=== PATIENT | male | born 1965 | race Caucasian/White ===

== ENCOUNTER 2016-09-18 06:12 | Observation (INO) | payer OTHER ==
[~2016-09-18] VITALS: Ht 175.3 cm; Wt 80.1 kg
[~2016-09-18 06:12] MED LIST: LACTATED RINGERS 1,000 ML IV SCH; SODIUM CHLORIDE FLUSH 3 ML SYR IV PRN
[2016-09-18 06:16] VITALS: BP 91/65
--- OUTSIDE RECORDS SUMMARY | 2016-09-18 06:16 | XMS REPORT | Summary of Care ---
Author Author Van Wall Organization Unknown Address [address], [place] [id number] Phone Unavailable Care Team Providers Care Materials Specialist Name Role Phone Van Wall Unavailable Unavailable Gorge Booth PP Unavailable Unavailable Unavailable Functional Status Functional Status Health Issues Name Dates Details Functional status health issues are not documented Status: Cognitive Status Health Issues Name Dates Details Cognitive status health issues are not documented Status: Problems Name Dates Details Diabetes (250.00, E11.9) Status: Active Depression (311, F32.9) Status: Active Migraine headache (346.90, G43.909) Status: Active Insulin long-term use (V58.67, Z79.4) Status: Active Type 2 diabetes mellitus, uncontrolled (250.02, E11.65) Status: Active Acquired hypertriglyceridemia (272.1, E78.1) Status: Active CKD (chronic kidney disease), stage III (585.3, N18.3) Status: Active Medications Name Dates Details Pioglitazone HCl - 30 MG Oral Tablet TAKE 1 TABLET ONCE DAILY. Refills: 0 Started 16-Oct-2015 ActiveFenofibrate 160 MG Oral Tablet Take 1 tablet daily Quantity: 30 Refills: 3 Van Wall Started 16-Oct-2015 ActiveHumaLOG KwikPen 100 UNIT/ML Subcutaneous Solution Pen-injector INJECT SUBCUTANEOUSLY DIRECTED. Up to 30 units per sliding scale 3 x daily with meals Quantity: 1 Refills: 0 Van Wall Started 21-Nov-2015 Active3 ML Pen (5 Pens) Tresiba FlexTouch 200 UNIT/ML Subcutaneous Solution Pen-injector inject sub-q 90 units daily . DX E 11.65 Quantity: 2 Refills: 3 Van Wall Started 27-Nov-2015 Active3 ML Pen (3 Pens) Trulicity 0.75 MG/0.5ML Subcutaneous Solution Pen-injector INJECT SUB-Q 0.75MG ONCE WEEKLY DX E 11.65 Quantity: 3 Refills: 2 Van Wall Started 27-Nov-2015 Active0.5 ML Pen (4 Pens) Allergies and Adverse Reactions Name Dates Details No Known Drug Allergies Status: Active Procedures Procedure Dates Details History of Middle Ear Surgery History of Knee Surgery History of Distal Reinsertion Of Ruptured Biceps Tendon HEMOGLOBIN A1C 3507 Ordered:30-Jan-2016 LIPID PROFILE 1184 Ordered:30-Jan-2016 Comprehensive Metabolic Panel 1212 Ordered:30-Jan-2016 Immunization Name Dates Details Immunizations not documented Family History Grandmother Name Dates Details Family history of myocardial infarction (V17.3, Z82.49) Status: Active Grandfather Name Dates Details Family history of malignant neoplasm (V16.9, Z80.9) Status: Active Social History Name Dates Details Smoking StatusNever smoker Vital Signs Date Test Result Details 30-Jan-2016 09:13 BP Systolic 122 mm[Hg] Status: BP Diastolic 80 mm[Hg] Status: Heart Rate 64 /min Status: Weight 208 lb Status: O2 SAT 98 % Status: Body Mass Index Calculated 30.72 kg/m2 Status: Body Surface Area Calculated 2.1 m2 Status: Results Date Description Value Details Results not documented Plan of Care Planned Observations Name Dates Details Planned Goals not documented Goal Planned Encounters Appointment; Provider: Jenna Mccurdy On 15-Aug-2010 15:30 Instructions Instructions not documented Encounters Appointment; Van Wall Encounter Diagnosis: Problem not documented On 30-Jan-2016 09:30 Appointment; Van Wall Encounter Diagnosis: Problem not documented On 27-Nov-2015 13:45 Appointment; Van Wall Encounter Diagnosis: Problem not documented On 16-Oct-2015 10:00
[2016-09-18] MEDS ORDERED: INSU100I23 SC (06:51)
[2016-09-18] MEDS ORDERED: GLIM2TAB PO (06:51)
[2016-09-18] MEDS ORDERED: PROMETHAZINE HCL INJ 12.5 MG in SODIUM CHLORIDE 25 ML IV PRN (08:45)
[2016-09-18] MEDS ORDERED: GLUCAGON EMERGENCY 1 MG/KIT IM PRN (08:45)
[2016-09-18] MEDS ORDERED: ACETAMINOPHEN 325 MG TAB (TYLENOL) PO PRN (08:45)
[2016-09-18] MEDS ORDERED: ONDANSETRON 2 MG/ML (Z0FRAN) 2 ML VIAL IV PRN (08:45)
[2016-09-18] MEDS ORDERED: DEXTROSE ORAL GEL (GLUTOSE 40%) 15 GM TUBE PO PRN (08:45)
[2016-09-18] MEDS ORDERED: DEXTROSE 50% 25 GM/50 ML SYRINGE IV PRN (08:45)
[2016-09-18 08:46] VITALS: BP 114/80
[2016-09-18] MEDS ORDERED: NS FLUSH 10 ML PRN IV (09:00)
[2016-09-18] MEDS ORDERED: NS FLUSH 3 ML PRN IV (09:00)
--- NOTE | 2016-09-18 09:02 | Progress Note (E) ---
Progress Note Planned diagnostic colonoscopy (change in bowel habit) for today was postponed due to uncontrolled blood glucose. Patient admitted by hospitalist service to facilitate control blood sugar. If this is controlled, we'll plan to proceed with colonoscopy tomorrow as patient is already prepped. Continue clear liquid diet today, NPO after midnight except meds with a sip of water. JONI GOLDEBRG MD Sep 18, 2016 09:02
[2016-09-18 09:05] LABS: BASOPHILS % (AUTO) 0 % (0-2); EOSINOPHILS # (AUTO) 0.1 10^3uL; EOSINOPHILS % (AUTO) 2 % (0-4); MEAN CORPUSCULAR HEMOGLOBIN 28.6 PG (26.0-34.0); MEAN PLATELET VOLUME 9.8 FL (6.0-9.5); MONOCYTES # (AUTO) 0.3 X10^3; MONOCYTES % (AUTO) 6 % (3-11); NEUTROPHILS # (AUTO) 3.8 X10^3; NEUTROPHILS % (AUTO) 73 % (51-67); PLATELET COUNT 117 10^3uL (150-450); WHITE BLOOD COUNT 5.24 10^3uL (4.0-11.0)
[2016-09-18 09:17] LABS: MEAN CORPUSCULAR VOLUME 77 FL (80-100)
[2016-09-18 09:21] LABS: ALBUMIN 3.9 g/dL (3.4-5.0); ANION GAP 17.7 MEQ/L (3-15); CALCULATED IONIZED CALCIUM 4.2 mg/dL (3.8-4.6); MAGNESIUM* 1.8 mg/dL (1.6-2.3); TOTAL PROTEIN 6.8 g/dL (6.4-8.5)
[2016-09-18] MEDS: INSULIN LISPRO 1 UNIT/0.01 ML (HUMALOG) DOSE SC SCH ×6 (09:21→21:37)
[2016-09-18] MEDS: NS FLUSH 3 ML DAILY IV SCH (09:21)
--- NOTE | 2016-09-18 09:54 | History and Physical (E) ---
History & Physical PCP: Gerardo Gifford MD TERMITE TREATER: Van Brooks MD, [facility] CC: Hyperglycemia HPI Jame Lagos is a 50 year old male admitted from [facility] 09/18 where he presented for scheduled outpatient colonoscopy (because of a new problem of change in bowel habit) but was found to have marked hyperglycemia with blood glucose 474. He has poorly treated diabetes and hasn't been taking his insulin at home. His colonoscopy was deferred and hospitalist service was contacted for further management. He was seen in [facility] and was alert interactive, oriented, and in no acute distress. He was agreeable to admission for further workup and management with plan to complete colonoscopy 09/19 once his blood glucose was stabilized. Regarding diabetes, says he had been on insulin for type II diabetes but had stopped taking it last month. Says he admits to getting frustrated because he feels like when he takes insulin his blood sugar still isn't regulated right. Says he has seen Dr. Wall, circuit walker with [facility], and he was supposed to see him soon for some new testing. Has had type II diabetes for 7 years. Says he was initially on oral therapy but started insulin 4 years ago. PMH * Diabetes Mellitus Type II, poorly controlled. * Constipation, change in bowel habits * CKD - Stage unknown. PSH * Biceps tendon rupture ALLERGIES: Please see list at end of report. HOME MEDICATIONS: Please see list at end of report. FH Mom is healthy. Father is healthy. Son is healthy. SH Lives in his own home in [place]. Son stays with him often. Works at [employer]. Denies smoking. No alcohol or drug use. ROS CONSTITUTION: Weight has been down about 7 pounds over the last 3 days. Denies fever or chills. HEENT: No change in vision or hearing. No sores in mouth, sore throat. CV: No chest pain, palpitations. PULM: No cough, shortness of breath, difficulty breathing. GI: No upset stomach, nausea, vomiting, or diarrhea. Has had some constipation. No blood in stool. : No dysuria. No blood in urine. MS: No new muscle or joint aches and pains. NEURO: Some numbness in feet and ankles that comes and goes. INTEG: No rashes, lesions, or sores. ENDO: No heat or cold intolerance. Often has increased thirst. HEME/LYMPH: No easy bruising or bleeding. No swollen glands. PSYCH: No change in mood or behavior. OBJECTIVE Vital Signs Date Time Temp Pulse Resp B/P Pulse Ox O2 Delivery O2 Flow Rate FiO2 09/18/16 06:16 97.7 104 18 91/65 98 Room air GEN: Awake, alert, oriented, NAD at present. HEENT: EOMI, PERRL, clear sclerae, mildly dry oral mucosa. CV: RRR S1 S2 normal with no murmur LUNGS: CTA B ABD: Soft, NT/ND with normal bowel sounds. EXTR: No C/C/E. Normal peripheral pulses. INTEG: No rash. NEURO: No focal motor neuro deficit. IMAGING: None new ASSESSMENT Jame Lagos is a 50 year old male admitted from [facility] 09/18 with marked hyperglycemia in the setting of diabetes mellitus type II, uncontrolled. He has not been taking his insulin. He was due for colonoscopy 09/18 for change in bowel habits but this was deferred to 09/19 because of hyperglycemia. PLAN * Hyperglycemia, Diabetes Mellitus Type II, Uncontrolled: Due to insulin non- adherence. Acknowledges he needs to take better care of this and is agreeable to getting back on track with insulin. Is agreeable to follow-up with his circuit walker in [place]. For now, basal/bolus regimen with correction factor. Check A1C. * DRAGAN on CKD: Unknown baseline Cr but he seems to remember having "kidney issue " and an abdominal sono in 2009 (on file in [facility]) showed normal sized kidneys bilaterally but with increased cortical echogenicity. For now, IVF. Check UA. Monitor Cr trend. * Dehydration: On the basis if labs, exam. NS bolus. I&O. * Change in Bowel Habits: Was supposed to have colonoscopy 09/18 but this was deferred to 09/19 because of hyperglycemia. * Constipation: Already cleaned out with bowel prep for colonoscopy. Observe. * F/E/N: IVF as above. CLD with NPO after midnight for colonoscopy. * Prophylaxis: Ambulate * Code Status: Full * Dispo: observation pending utilization. Expected to discharge 09/19 after colonoscopy recovery. Allergies/Home Medications Allergies: Coded Allergies: No Known Drug Allergies (Unverified , 09/17/16) Reported Home Medications Scheduled Glimepiride (Glimepiride) 2 MG PO DAILY (Reported) Insulin Lispro (Humalog) 24 UNIT SC TID (Reported) Copies to: End of Report . PHILIPP TELLO MD Sep 18, 2016 09:35
[2016-09-18 10:56] LABS: BILIRUBIN,URINE Negative (Negative); CLARITY,URINE Clear; COLOR,URINE Yellow; GLUCOSE, URINE (UA) 2+ (Negative); LEUKOCYTE ESTERASE ,URINE Negative (Negative); PH,URINE 5.5 (5.0 - 8.0); UROBILINOGEN,URINE 0.2 mg/dL (0.2-1.0)
[2016-09-18 11:47] LABS: RBC,URINE 0-2 /HPF; URINE CENTRIFUGED VOLUME 12 mL
[2016-09-18 15:46] VITALS: BP 123/78
[2016-09-18] MEDS ORDERED: INSULIN GLARGINE 1 UNIT/0.01ML (LANTUS) DOSE SC SCH (21:00)
[2016-09-18 23:46] VITALS: BP 121/84
[2016-09-19 06:44] LABS: BASOPHILS % (AUTO) 0 % (0-2); EOSINOPHILS # (AUTO) 0.2 10^3uL; EOSINOPHILS % (AUTO) 4 % (0-4); LYMPHOCYTES # (AUTO) 1.2 X10^3; MEAN CORPUSCULAR HEMOGLOBIN 28.2 PG (26.0-34.0); MEAN PLATELET VOLUME 9.9 FL (6.0-9.5); MONOCYTES # (AUTO) 0.4 X10^3; MONOCYTES % (AUTO) 9 % (3-11); NEUTROPHILS # (AUTO) 3.1 X10^3; NEUTROPHILS % (AUTO) 63 % (51-67); PLATELET COUNT 112 10^3uL (150-450); WHITE BLOOD COUNT 4.85 10^3uL (4.0-11.0)
[2016-09-19 06:48] LABS: ALBUMIN 3.4 g/dL (3.4-5.0); ANION GAP 13.8 MEQ/L (3-15); MAGNESIUM* 1.8 mg/dL (1.6-2.3); PHOSPHORUS 4.4 mg/dL (2.4-4.9)
[2016-09-19 07:12] LABS: MEAN CORPUSCULAR HGB CONC 35.8 g/dL (31.0-37.0); MEAN CORPUSCULAR VOLUME 79 FL (80-100)
[2016-09-19] MEDS: INSULIN LISPRO 1 UNIT/0.01 ML (HUMALOG) DOSE SC SCH ×5 (07:14→12:26)
[2016-09-19] MEDS: NS FLUSH 3 ML DAILY IV SCH (08:34)
[2016-09-19 08:57] VITALS: BP 119/75
[2016-09-19] MEDS ORDERED: INSU100V8 SC (11:37)
--- NOTE | 2016-09-19 11:57 | Discharge Summary (E) ---
Discharge Summary (A) Admit Date/Time Sep 18, 2016 at 07:24 Discharge Date/Time Sep 19, 2016 Admitting Provider Hector Mcmullen MD Primary Care Provider Gerardo Gifford MD Attending Provider Hector Mcmullen MD Discharging physician: Rosa Hernandez MD Consulting Provider Admission Diagnosis Hyperglycemia, Diabetes Mellitus Type II, Uncontrolled DRAGAN on CKD Dehydration Change in Bowel Habits Constipation History and Present Illness Jame Lagos is a 50 year old male admitted from [facility] 09/18 where he presented for scheduled outpatient colonoscopy (because of a new problem of change in bowel habit) but was found to have marked hyperglycemia with blood glucose 474. He has poorly treated diabetes and hasn't been taking his insulin at home. His colonoscopy was deferred and hospitalist service was contacted for further management. He was seen in [facility] and was alert interactive, oriented, and in no acute distress. He was agreeable to admission for further workup and management with plan to complete colonoscopy 09/19 once his blood glucose was stabilized. Regarding diabetes, says he had been on insulin for type II diabetes but had stopped taking it last month. Says he admits to getting frustrated because he feels like when he takes insulin his blood sugar still isn't regulated right. Says he has seen Dr. Cardenas, metal bonding worker with [facility], and he was supposed to see him soon for some new testing. Has had type II diabetes for 7 years. Says he was initially on oral therapy but started insulin 4 years ago. Hospital Course and Treatment Hyperglycemia, Diabetes Mellitus Type II, Uncontrolled Due to patient not taking his insulin. Acknowledges he needs to take better care of this and is agreeable to getting back on track with insulin. I Continue basal/bolus regimen with correction factor. A1C >14. Currently has f/u with Dr. Gifford and Dr. Cardenas (endocrine). DRAGAN on CKD Baseline Cr is unknown. For now, IVF. UA shows proteinuria. Monitor Cr trend. Dehydration IVF's provided, i/o's monitored. Change in Bowel Habits Prepped for colonoscopy which was scheduled for 09/18, deferred d/t BG. Patient will be d/c'd today to have colonoscopy this afternoon, then d/c'd to home. F/E/N IVF as above. CLD with NPO after midnight for colonoscopy on 09.19.16. Electrolytes normal at this time. DVT prophylaxis Ambulate Code Status Full code Dispo Observation status. Will discharge today for colonoscopy this afternoon. Discharge Physicial Exam Physical Exam General--Awake and alert. No distress. HEENT--Normocephalic. MMM in oral cavity. Lungs--Clear to auscultation bilaterally. Nonlabored respirations. Heart--RRR. No murmurs. Abdomen--Normal bowel sounds. Soft. Nondistended. Nontender. Extremities--No edema. Radiology/Laboratory Data Laboratory Results Past 72 Hrs 09/18/16 09:00: Alanine Aminotransferase (ALT/SGPT) 43, Albumin 3.9, Albumin/Globulin Ratio 1.344, Alkaline Phosphatase 123, Anion Gap 17.7H, Aspartate Amino Transf (AST/ SGOT) 19, BUN/Creatinine Ratio 14, Basophils # (Auto) 0.0, Basophils (%) (Auto) 0, Blood Urea Nitrogen 24H, Calcium Level 9.2, Calcium/Ionized Calcium Ratio 4.2 , Calculated Osmolality 289, Carbon Dioxide Level 18L, Chloride Level 104, Creatinine 1.74H, Eosinophils # (Auto) 0.1, Eosinophils (%) (Auto) 2, Estimat Glomerular Filtration Rate 50.7, Estimated GFR (Non- 41.9, Glucose Level 477*H, Hematocrit 40.50, Hemoglobin 15.0, Hemoglobin A1c > 14.0H, Lymphocytes # (Auto) 1.0, Lymphocytes (%) (Auto) 19L, Magnesium Level 1.8, Mean Corpuscular Hemoglobin 28.6, Mean Corpuscular Hemoglobin Concent 37.0, Mean Corpuscular Volume 77L, Mean Platelet Volume 9.8H, Monocytes # (Auto) 0.3, Monocytes (%) (Auto) 6, Neutrophils # (Auto) 3.8, Neutrophils (%) (Auto) 73H, Platelet Count 117L, Potassium Level 3.9#, Red Blood Count 5.25, Red Cell Distribution Width 14.4, Sodium Level 136, Thyroid Stimulating Hormone (TSH) 4.89#H, Total Bilirubin 0.9, Total Protein 6.8, White Blood Count 5.24 09/18/16 10:38: Urine Bacteria None seen, Urine Bilirubin Negative, Urine Clarity Clear, Urine Collection Type Clean catch, Urine Color Yellow, Urine Glucose (UA) 2+H, Urine Ketones TraceH, Urine Leukocyte Esterase Negative, Urine Nitrite Negative, Urine Protein 1+H, Urine RBC 0-2, Urine RBC (Auto) Trace-lysedH, Urine Specific [place] 1.010, Urine Squamous Epithelial Cells 0-2, Urine Urobilinogen 0.2, Urine WBC None seen, Urine pH 5.5, Volume Urine Centrifuged 12 ml 09/19/16 05:15: Albumin 3.4, Anion Gap 13.8, Basophils # (Auto) 0.0, Basophils (%) (Auto) 0, Blood Urea Nitrogen 16, Calcium Level 8.9, Carbon Dioxide Level 21L, Chloride Level 109H, Creatinine 1.47, Eosinophils # (Auto) 0.2, Eosinophils (%) (Auto) 4 , Estimat Glomerular Filtration Rate 61.6, Estimated GFR (Non- 50.9, Glucose Level 236#H, Hematocrit 39.70, Hemoglobin 14.2, Lymphocytes # ( Auto) 1.2, Lymphocytes (%) (Auto) 24, Magnesium Level 1.8, Mean Corpuscular Hemoglobin 28.2, Mean Corpuscular Hemoglobin Concent 35.8, Mean Corpuscular Volume 79L, Mean Platelet Volume 9.9H, Monocytes # (Auto) 0.4, Monocytes (%) ( Auto) 9, Neutrophils # (Auto) 3.1, Neutrophils (%) (Auto) 63, Platelet Count 112L, Potassium Level 3.6, Red Blood Count 5.03, Red Cell Distribution Width 14.8, Sodium Level 140, White Blood Count 4.85, Phosphorus Level 4.4 Discharge Provider's Instructions You were admitted due to your blood sugars being elevated. Insulin was provided to bring these down. Your hemoglobin A1c is reading >14 which correlates with an average blood glucose reading of greater than 380. You are being resumed on your home insulin, however your nighttime Lantus dose has been increased. You have appointment set up with Dr. Cardenas (tomorrow) and Dr. Gifford (next week), if you are unable to keep these appointments, please call their offices to reschedule. Discharge Diet: Carbohydrate controlled Discharge Medications New Medications: Insulin Glargine,Hum.rec.anlog (Insulin Lantus) 100 Units/1 Ml Vial 20 UNIT SC HS #1 Ref 0 VIAL Continued Medications: Insulin Lispro (Humalog) 100 Unit/1 Ml Insuln.pen 24 UNIT SC TID DIS.SYR Follow up Follow up Referrals: Family Practice - 09/24/16 @ [facility] with Gerardo Gifford Md Physician Referral - 09/20/16 @ [facility] with Van Cardenas MD Discharge Diagnosis Hyperglycemia, Diabetes Mellitus Type II, Uncontrolled DRAGAN on CKD Dehydration Copies to: Additional Provider: VAN CARDENAS MD End of Report . ROSA HERNANDEZ MD Sep 19, 2016 11:57
[2016-09-19] MEDS ORDERED: LACTATED RINGERS 1,000 ML IV SCH (14:00)
--- NOTE | 2016-09-19 14:13 | Discharge Instructions (E) ---
Discharge Instructions Instructions You were admitted due to your blood sugars being elevated. Insulin was provided to bring these down. Your hemoglobin A1c is reading >14 which correlates with an average blood glucose reading of greater than 380. You are being resumed on your home insulin, however your nighttime Lantus dose has been increased. You have appointment set up with Dr. Wall (tomorrow) and Dr. Gifford (next week), if you are unable to keep these appointments, please call their offices to reschedule. Discharge Diet: Carbohydrate controlled ALISSA FISHER MD Sep 19, 2016 14:13
[2016-09-19] MEDS ORDERED: MIDAZOLAM 2 MG/2 ML (VERSED) VIAL ONE (15:01)
[2016-09-19] MEDS ORDERED: PROPOFOL 20 ML IV ONE ×2 (15:02)
[2016-09-19] MEDS ORDERED: ALFENTANIL 500 MCG/ML (ALFENTA) 5 ML AMP IV ONE (15:02)
[2016-09-19 15:48] VITALS: BP 117/63
[2016-09-19 16:10] VITALS: BP 120/65
--- NOTE | 2016-09-20 08:54 | OPERATIVE REPORT ---
DATE OF OPERATION: 09/19/2016 PRE-OPERATIVE DIAGNOSIS: Change in bowel habit POST-OPERATIVE DIAGNOSIS: Normal colonoscopy OPERATIVE PROCEDURE: Total colonoscopy SURGEON: Brant Toribio MD ANESTHESIA: IV conscious sedation, Monitored Anesthesia Services POSITION: Left lateral decubitus FINDINGS: 1. Normal colon mucosa. 2. Fair prep. INDICATIONS: This patient had change in bowel habit with unusual constipation and change of stool caliber. Therefore colonoscopy was recommended to evaluation for possible etiologies. This was originally scheduled for yesterday (09/18/2016) as an outpatient, but he was noted to have blood glucose of 456. Therefore the procedure was postponed. He was admitted overnight for control of his blood sugar, which is now at 200. He had admitted to not taking insulin for over a month. OPERATIVE NOTE: Following satisfactory induction of analgesia a digital rectal exam was performed. This revealed normal sphincter tone and prostate. No rectal masses palpable. Next the colonoscope was introduced per rectum and advanced under CO2 insufflation and direct vision to the cecum identified by convergence of the teniae, ileocecal valve, and palpation of the right lower quadrant. The patient was noted to have some patchy areas of stool primarily in the cecum and ascending colon. Extensive irrigation removed most of these areas, but a tiny polyp could be missed behind the remaining areas of stool. The above areas were again carefully inspected as the scope was slowly withdrawn. Retroflexed view of the rectum was normal. Excess insufflated CO2 was evacuated and the scope removed. RECOMMENDATIONS: I recommend a bowel regimen to include daily, or twice daily, soluble fiber supplements plus water intake to maintain regularity of bowel movements. Strict glucose control is mandatory (poor control may have contributed to colon dysmotility). Because of these patchy areas of stool, I would recommend repeat colonoscopy in 5 years rather than 10 in the absence of symptoms.
== END 2016-09-19 14:50 | disposition home or self-care (01) ==
LOC: ASC 06:12 → MED/SURG 07:24 → EDSTATUS 09:00 → UNDODISOB 09-19 14:50
PROVIDERS: ADMIT Internal Medicine; ATTEND Internal Medicine
PROC: 0DJD8ZZ Inspection of Lower Intestinal Tract, Via Natural or Artificial Opening Endoscopic (ICD-10-PCS; principal; 2016-09-19)
DX: R19.4 Change in bowel habit (principal); E11.65 Type 2 diabetes mellitus with hyperglycemia; K59.00 Constipation, unspecified; N17.9 Acute kidney failure, unspecified; E11.22 Type 2 diabetes mellitus with diabetic chronic kidney disease; N18.9 Chronic kidney disease, unspecified; E86.0 Dehydration; Z91.14 Patient's other noncompliance with medication regimen; Z79.4 Long term (current) use of insulin
CPT/HCPCS: 36415; 80053; 80069; 81003; 81015; 83036; 83735; 84443; 85025; 99218

== ENCOUNTER → 2016-11-26 | Outpatient (CLI) | payer OTHER | LOC: LAB 12:58 | PROVIDERS: ATTEND Family Medicine | DX: R19.7 Diarrhea, unspecified (principal) | CPT/HCPCS: 87507 ==